=== PATIENT | male | born 1980 | race Caucasian/White ===

== ENCOUNTER 2017-08-01 11:45 | Emergency (ER) | payer OTHER | END 2017-08-01 12:55 | disposition home or self-care (01) | LOC: M ED 11:45 | DX: J06.9 Acute upper respiratory infection, unspecified (principal); Z87.891 Personal history of nicotine dependence | CPT/HCPCS: 87880 ==

== ENCOUNTER 2018-03-15 20:04 | Emergency (ER) | payer OTHER ==
[2018-03-15] MEDS: KETOROLAC 60 MG/2 ML VIAL (J1885) IM (21:46)
[2018-03-15] MEDS: METHOCARBAMOL 500 MG TAB PO (22:56)
[2018-03-15] MEDS: NORCO 5/325MG TABLET (BULK FOR ED) PO (22:56)
== END 2018-03-15 23:03 | disposition home or self-care (01) ==
LOC: M ED 20:04
DX: S39.012A Strain of muscle, fascia and tendon of lower back, initial encounter (principal); X50.9XXA Other and unspecified overexertion or strenuous movements or postures, initial encounter; Y92.89 Other specified places as the place of occurrence of the external cause
CPT/HCPCS: J1885